=== PATIENT | male | born 1980 | race Caucasian/White ===

== ENCOUNTER 2022-05-09 21:01 | Emergency (ER) | payer OTHER ==
--- NOTE | 2022-05-09 22:00 | XR ---
EXAMINATION TYPE: XR ribs RT w pa chest xray DATE OF EXAM: 05/09/2022 COMPARISON: NONE HISTORY: Pain TECHNIQUE: 5 views FINDINGS: Heart and mediastinum are normal. Lungs are clear of infiltrate. No pleural effusion or pne umothorax. Right shoulder appears intact. No evidence of right-sided rib fracture. IMPRESSION: Negative right rib exam. Normal chest.
[2022-05-09 22:47] VITALS: RESP 16
--- NOTE | 2022-05-09 22:49 | ED ---
Fall HPI - General Chief Complaint: Fall Stated Complaint: Fall-R rib injury Time Seen by Provider: 05/09/22 22:39 Source: patient, RN notes reviewed, old records reviewed Mode of arrival: ambulatory Limitations: no limitations - History of Present Illness Initial Comments: This is a 41-year-old male to the emergency department for evaluation. Patient resents today for evaluation regards to fall. Fall with right-sided rib pain. Patient fell off a stepladder. Having some shortness of breath able. No other injury or traumatic issue noted. Did not his head no loss conscious. No drugs or alcohol MD Complaint: fall -: hour(s) Fall From: from height (distance) When Fall Occurred: 1-3 hours [employer] HEL[employer] Fall Witnessed: yes, by family Place Fall Occurred: home Loss of Consciousness: none Prolonged Down Time?: no Symptoms Prior to Fall: none Location: chest Severity: moderate Severity scale (1-10): 5 Quality: burning Context: tripped/slipped Associated Symptoms: denies - Related Data Allergies Allergy/AdvReac Type Severity Reaction Status Date / Time Penicillins Allergy Rash/Hives Verified 05/09/22 21:20 Review of Systems ROS Statement: Those systems with pertinent positive or pertinent negative responses have been documented in the HPI. ROS Other: All systems not noted in ROS Statement are negative. Past Medical History Past Medical History: Diabetes Mellitus History of Any Multi-Drug Resistant Organisms: None Reported Past Surgical History: No Surgical Hx Reported Past Psychological History: No Psychological Hx Reported Smoking Status: Never smoker Past Alcohol Use History: Occasional Past Drug Use History: None Reported General Exam Limitations: no limitations General appearance: alert, in no apparent distress Head exam: Present: atraumatic, normocephalic, normal inspection Eye exam: Present: normal appearance, PERRL, EOMI. Absent: scleral icterus, conjunctival injection, periorbital swelling ENT exam: Present: normal exam, mucous membranes moist Neck exam: Present: normal inspection. Absent: tenderness, meningismus, lymphadenopathy Respiratory exam: Present: normal lung sounds bilaterally. Absent: respiratory distress, wheezes, rales, rhonchi, stridor Cardiovascular Exam: Present: regular rate, normal rhythm, normal heart sounds. Absent: systolic murmur, diastolic murmur, rubs, gallop, clicks GI/Abdominal exam: Present: soft, normal bowel sounds. Absent: distended, tenderness, guarding, rebound, rigid Extremities exam: Present: normal inspection, full ROM, normal capillary refill. Absent: tenderness, pedal edema, joint swelling, calf tenderness Back exam: Present: normal inspection Neurological exam: Present: alert, oriented X3, CN II-XII intact Psychiatric exam: Present: normal affect, normal mood Skin exam: Present: warm, dry, intact, normal color. Absent: rash Course Vital Signs 05/09/22 05/09/22 21:20 22:46 Temperature 97.7 F 98 F Pulse Rate 71 74 Respiratory 18 16 Rate Blood Pressure 129/70 140/78 O2 Sat by Pulse 97 99 Oximetry - Reevaluation(s) Reevaluation #1: 05/09/22 23:37 Medical record is reviewed Reevaluation #2: 05/09/22 23:51 Patient informed of results and questions answered Reevaluation #3: 05/09/22 23:51 Patient's pain is improved Medical Decision Making - Medical Decision Making 41 male to the emergency department for evaluation severe right rib pain after fall fall with right rib significant pain tenderness no fracture noted right rib contusion patient can be discharged home - Radiology Data Radiology results: report reviewed (X-ray chest shows right rib can contusion no fracture), image reviewed Disposition Clinical Impression: Fall, Contusion of rib on right side Disposition: HOME SELF-CARE Condition: Good Instructions (If sedation given, give patient instructions): Fall Prevention (ED), Rib Contusion (ED) Is patient prescribed a controlled substance at d/c from ED?: No Referrals: Roberto Carlos Frank MD [Primary Care Provider] - 1-2 days Time of Disposition: 23:50
[2022-05-09] MEDS ORDERED: KETOROLAC 15 MG/ML 1 ML VIAL IM STA (23:50)
[2022-05-09] MEDS ORDERED: ACET/COD 300 MG/30 MG STARTER PACK 6 TAB BTL PO STA (23:50)
[2022-05-09] MEDS ORDERED: IBUPROFEN 600 MG STARTER PACK 4 TAB BTL PO STA (23:50)
[2022-05-09] MEDS ORDERED: Acetaminophen-Codeine 300-30mg TAB PO STA (23:50)
[2022-05-10 00:08] VITALS: BP 130/74; PULSE 72; TEMP 98.4
== END 2022-05-10 00:07 | disposition home or self-care (01) ==
LOC: EC 21:01
DX: S20.211A Contusion of right front wall of thorax, initial encounter (principal); E11.9 Type 2 diabetes mellitus without complications; Z88.0 Allergy status to penicillin; W11.XXXA Fall on and from ladder, initial encounter; Y92.009 Unspecified place in unspecified non-institutional (private) residence as the place of occurrence of the external cause
CPT/HCPCS: 99285 ×2; 96372 ×2; 71101; J1885

== ENCOUNTER 2024-05-13 18:06 | Emergency (ER) | payer OTHER ==
[2024-05-13 18:32] VITALS: BP 146/87; PULSE 72; RESP 20; TEMP 98.7
--- NOTE | 2024-05-13 19:04 | ED ---
Burn/Smoke HPI - General Chief complaint: Burn/Smoke Inhalation Stated complaint: R Hand Burn Time Seen by Provider: 05/13/24 18:21 Source: patient, RN notes reviewed Mode of arrival: ambulatory Limitations: no limitations - History of Present Illness Initial comments: This is a 43-year old male presenting to the emergency department with a chief complaint of a burn to his right palm that occurred prior to arrival. States that he was working on a car when he accidentally touched the hot side of a wrench while he was picking it up with his right hand. Patient denies any other injuries at the time of the event. Unaware when his last tetanus vaccination was. He denies paresthesias or loss of range of motion of the right hand. no other acute complaints at this time. - Related Data Allergies Allergy/AdvReac Type Severity Reaction Status Date / Time Penicillins Allergy Rash/Hives Verified 05/13/24 18:32 Review of Systems ROS Statement: Those systems with pertinent positive or pertinent negative responses have been documented in the HPI. ROS Other: All systems not noted in ROS Statement are negative. 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 Absent: scleral icterus, conjunctival injection, periorbital swelling Neck exam: Present: normal inspection. Absent: tenderness, meningismus, lymphadenopathy Respiratory exam: Present: normal lung sounds bilaterally. Absent: respiratory distress, wheezes, rales, rhonchi, stridor Cardiovascular Exam: Present: regular rate, normal rhythm, normal heart sounds. Absent: systolic murmur, diastolic murmur, rubs, gallop, clicks GI/Abdominal exam: Present: soft, normal bowel sounds. Absent: distended, tenderness, guarding, rebound, rigid Right Hand Wrist exam: Present: full ROM, tenderness. Absent: normal inspection, abrasion Neuro motor exam: Present: wrist extension intact, thumb opposition intact Vascular: Present: normal capillary refill, radial pulse (2+). Absent: vascular compromise Back exam: Present: normal inspection Expanded Type of lesion: Present: other Distribution of rash: involves palms/soles Description of rash: Present: tenderness, erythematous, blisters (right palm 2nd degree unroofed [place], no evidence of broken skin) Course Vital Signs 05/13/24 18:30 Temperature 98.7 F Pulse Rate 72 Respiratory 20 Rate Blood Pressure 146/87 O2 Sat by Pulse 98 Oximetry Medical Decision Making - Medical Decision Making Was pt. sent in by a medical professional or institution (, ADRIANA, INFORMATION DIRECTOR, urgent care, hospital, or correction...) When possible be specific @ -No Did you speak to anyone other than the patient for history (EMS, parent, family, police, friend...)? What history was obtained from this source @ -No Did you review nursing and triage notes (agree or disagree)? Why? @ -I reviewed and agree with nursing and triage notes Were old charts reviewed (outside hosp., previous admission, EMS record, old EKG, old radiological studies, urgent care reports/EKG's, correction records)? Report findings @ -No old charts were reviewed Differential Diagnosis (chest pain, altered mental status, abdominal pain women, abdominal pain men, vaginal bleeding, weakness, fever, dyspnea, syncope, headache, dizziness, GI bleed, back pain, seizure, CVA, palpatations, mental health, musculoskeletal)? @ -First-degree burn, second-degree burn, third-degree burn, this list is not all inclusive EKG interpreted by me (3pts min.). @ -Time X-rays interpreted by me (1pt min.). @ -None done CT interpreted by me (1pt min.). @ -None done U/S interpreted by me (1pt. min.). @ -None done What testing was considered but not performed or refused? (CT, X-rays, U/S, labs)? Why? @ -None What meds were considered but not given or refused? Why? @ -None Did you discuss the management of the patient with other professionals (professionals i.e. ADRIANA Gustafson, INFORMATION DIRECTOR, lab, RT, psych nurse, social sciences department chair, office messenger helper, teacher, ict help desk officer, porter sample case)? Give summary @ -No Was smoking cessation discussed for >3mins.? @ -No Was critical care preformed (if so, how long)? @ -No Were there social determinants of health that impacted care today? How? (Homelessness, low income, unemployed, alcoholism, drug addiction, transportation, low edu. Level, literacy, decrease access to med. care, penitentiary, rehab)? @ -No Was there de-escalation of care discussed even if they declined (Discuss DNR or withdrawal of care, Hospice)? DNR status @ -No What co-morbidities impacted this encounter? (DM, HTN, Smoking, COPD, CAD, Cancer, CVA, ARF, Chemo, Hep., AIDS, mental health diagnosis, sleep apnea, morbid obesity)? @ -None Was patient admitted / discharged? Hospital course, mention meds given and route, prescriptions, significant lab abnormalities, going to OR and other pertinent info. @ -Discharge. 43-year-old male with burn to the right palm. Evaluation patient had second-degree [place] with blistering of the right palm no evidence of open skin or deroofing of the blisters. Area was thoroughly cleansed with sterile water and Betadine solution. Topical mupirocin applied over top of [place]. Corinne ent is discharged in stable condition instructed to continue Tylenol Motrin as needed for pain in addition to topical antibiotic ointment and keeping the area of concern clean and dry. Additionally, patient provided with tetanus vaccination. Discussed with Dr. Jiménez Undiagnosed new problem with uncertain prognosis? @ -No Drug Therapy requiring intensive monitoring for toxicity (Heparin, Nitro, Insulin, Cardizem)? @ -No Were any procedures done? @ -No Diagnosis/symptom? @ -2nd degree burn Acute, or Chronic, or Acute on Chronic? @ -acute Uncomplicated (without systemic symptoms) or Complicated (systemic symptoms)? @ -uncomplicated Side effects of treatment? @ -No Exacerbation, Progression, or Severe Exacerbation? @ -No Poses a threat to life or bodily function? How? (Chest pain, [place], [place], pneumonia, PE, COPD, DKA, ARF, appy, cholecystitis, CVA, Diverticulitis, Homicidal, Suicidal, threat to staff... and all critical care pts) @ -No Disposition Clinical Impression: Burn Disposition: HOME SELF-CARE Condition: Good Instructions (If sedation given, give patient instructions): Second-Degree Burn (ED) Additional Instructions: Please return to the Emergency Department if symptoms worsen or any other concerns. It is recommended that you use topical antibiotic ointment two times per day over open areas of skin. continue to keep area clean and dry. Is patient prescribed a controlled substance at d/c from ED?: No Referrals: Roberto Carlos Frank MD [Primary Care Provider] - 1-2 days Time of Disposition: 19:20
[2024-05-13] MEDS: ACETAMINOPHEN TAB 500 MG TAB PO STA (19:10)
[2024-05-13] MEDS: DIPH,PERTUS(ACELL)TETVAC-LF 0.5 ML VIAL IM ONE (19:12)
[2024-05-13] MEDS: MUPIROCIN 2% OINT 22 GM TUBE TOPICAL STA (19:28)
== END 2024-05-13 20:05 | disposition home or self-care (01) ==
LOC: EC 18:06
DX: T23.351A Burn of third degree of right palm, initial encounter (principal); T31.0 Burns involving less than 10% of body surface; Z23 Encounter for immunization; Z88.0 Allergy status to penicillin; W27.4XXA Contact with kitchen utensil, initial encounter
CPT/HCPCS: 16020; 90471; 90715; 99283